=== PATIENT | male | born 1985 | race Two or more races ===

== ENCOUNTER 2021-05-16 10:49 | Emergency (ER) | payer OTHER ==
[~2021-05-16] VITALS: Ht 175.3 cm; Wt 98.0 kg
== END 2021-05-16 13:26 | disposition home or self-care (01) ==
LOC: ER 10:49
DX: S61.012A Laceration without foreign body of left thumb without damage to nail, initial encounter (principal); W26.0XXA Contact with knife, initial encounter; Y93.89 Activity, other specified; Y92.010 Kitchen of single-family (private) house as the place of occurrence of the external cause; Y99.8 Other external cause status